=== PATIENT | female | born 1985 | race Caucasian/White ===

== ENCOUNTER → 2019-08-31 | Outpatient (CLI) | payer OTHER ==
[~2019-08-31] MED LIST: LIDEX0.05% T; MOTRIN800 MG PO; NKHM; PERCOCET 325 MG1 TA5 PO; PERCOCET 325 MG1 TA6 PO
[2019-08-31 11:28] LABS: LIPASE 162 U/L (73-393)
[2019-09-01 09:06] LABS: H PYLORI IGG AB 162289 0.18 (0.00-0.79)
[2019-09-01 17:09] LABS: ANTI-SMOOTH MUSCLE ANTIBODY 5 Units (0-19)
== END | disposition home or self-care (01) ==
LOC: LAB 10:31
PROVIDERS: Family Medicine
DX: F41.1 Generalized anxiety disorder (principal); R10.9 Unspecified abdominal pain; R53.83 Other fatigue; E74.00 Glycogen storage disease, unspecified